=== PATIENT | male | born 1955 | race Caucasian/White ===

== ENCOUNTER 2017-09-16 00:40 | Emergency (ER) | payer OTHER | END 2017-09-16 02:10 | disposition home or self-care (01) | LOC: D.ER 00:40 | DX: S61.512A Laceration without foreign body of left wrist, initial encounter (principal); W26.0XXA Contact with knife, initial encounter; Y93.89 Activity, other specified; Y92.019 Unspecified place in single-family (private) house as the place of occurrence of the external cause; J44.9 Chronic obstructive pulmonary disease, unspecified; Z86.73 Personal history of transient ischemic attack (TIA), and cerebral infarction without residual deficits ==

== ENCOUNTER 2018-01-03 18:52 | Emergency (ER) | payer OTHER ==
[~2018-01-03] VITALS: Ht 177.8 cm; Wt 68.2 kg
[2018-01-03] MEDS ORDERED: SYMBICORT 16010.2 GM INH (18:57)
[2018-01-03] MEDS ORDERED: VENTOLIN HFA18 GM INH (18:57)
[2018-01-03] MEDS ORDERED: BAYER CHEWABLE81 MG PO (18:57)
[2018-01-03 19:16] LABS: BASOPHILS 0.2 % (0-2); HEMATOCRIT 53.3 % (42.0-54.0); HEMOGLOBIN 18.8 g/dL (13.5-17.5); IMMATURE GRANULOCYTES 0.3 % (0-5); LYMPHOCYTES 21.1 % (15-50); MCH 34.9 pg (26.0-34.0); MCHC 35.3 g/dL (31.0-37.0); MCV 98.9 fL (80.0-100.0); MEAN PLATELET VOLUME 10.7 fL (7.4-10.4); MONOCYTES 14.9 % (2-11); NEUTROPHILS 62.5 % (40-80); PLATELET COUNT 227 10x3/uL (130-400); RBC 5.39 10x6/uL (4.20-6.10); RDW 13.2 % (11.5-14.5); WBC 16.4 10x3/uL (4.8-10.8)
[2018-01-03 19:30] LABS: APTT 27.9 SECONDS (22.8-39.4); INR 0.95 (0.85-1.17); PROTIME 12.3 SECONDS (11.6-15.0)
[2018-01-03 19:31] LABS: D-DIMER-QUANTITATIVE 0.7 ug/mLFEU (0.20-0.54)
[2018-01-03 20:00] LABS: ALBUMIN 3.3 g/dL (3.4-5.0); ALKALINE PHOSPHATASE 81 U/L (46-116); ALT (SGPT) 31 U/L (10-68); BILIRUBIN - TOTAL 0.94 mg/dL (0.2-1.3); CALC OSMOLALITY 269 mosm/kg (275-300); CALCIUM 8.7 mg/dL (8.5-10.1); CARBON DIOXIDE 28.8 mmol/L (21.0-32.0); CHLORIDE - SERUM 98 mmol/L (98-107); CREATININE - SERUM 0.7 mg/dL (0.6-1.3); GLUCOSE 133 mg/dL (74-106); POTASSIUM - SERUM 4.6 mmol/L (3.5-5.1); PROTEIN - SERUM 7.9 g/dL (6.4-8.2); SODIUM 135 mmol/L (136-145); UREA NITROGEN 8 mg/dL (7-18); eGFR NON AFRICAN AMERICAN > 90 mL/min (90-120)
[2018-01-03 20:11] LABS: CKMB 2.4 U/L (0.0-3.6); CREATINE KINASE 81 UL (21-232); PRO BNP 230 pg/mL (0-125)
== END 2018-01-04 01:17 | disposition other institution (70) ==
LOC: D.ER 18:52
PROVIDERS: Emergency Medicine
DX: J44.1 Chronic obstructive pulmonary disease with (acute) exacerbation (principal); J96.90 Respiratory failure, unspecified, unspecified whether with hypoxia or hypercapnia; Z86.73 Personal history of transient ischemic attack (TIA), and cerebral infarction without residual deficits; I10 Essential (primary) hypertension; F17.200 Nicotine dependence, unspecified, uncomplicated

== ENCOUNTER → 2019-07-01 09:30 | Outpatient (CLI) | payer OTHER ==
[2018-01-03 18:54] VITALS: BMI 21.5
[~2019-07-01 09:30] MED LIST: BAYER CHEWABLE81 MG PO; SYMBICORT 16010.2 GM INH; VENTOLIN HFA18 GM INH
== END | disposition home or self-care (01) ==
LOC: D.RT 09:30
PROVIDERS: ATTEND Pediatrics
DX: Z02.71 Encounter for disability determination (principal)